=== PATIENT | female | born 1945 | race Caucasian/White ===

== ENCOUNTER 2017-10-02 13:15 | Inpatient (IN) | payer MEDICARE ==
[2017-10-02 15:34] VITALS: BMI 21.0
[2017-10-09] MEDS ORDERED: CEFAZOLIN/Water 2 GM/20 ML SYRINGE ONE (08:56)
[2017-10-09] MEDS ORDERED: Tranexamic Acid 1,000 MG/100 ML BAG ONE ×2 (08:57→12:06)
[2017-10-09] MEDS ORDERED: Fentanyl 100 MCG/2 ML VIAL ONE (09:05)
[2017-10-09] MEDS ORDERED: Midazolam HCl 2 mg/2 ml Vial ONE ×2 (09:05→10:36)
[2017-10-09] MEDS ORDERED: traMADol HCl 50 MG TAB PO PRN ×2 (09:30→10:14)
[2017-10-09] MEDS ORDERED: diphenhydrAMINE 50 MG/ML VIAL IVP PRN (09:30)
[2017-10-09] MEDS ORDERED: diphenhydrAMINE 25 MG CAP PO PRN ×2 (09:30→10:14)
[2017-10-09] MEDS ORDERED: Fentanyl/Bupivacaine 250 ML in Premix Bag 1 BAG EPIDURAL SCH (09:30)
[2017-10-09] MEDS ORDERED: Bupivacaine 0.25% 10 ML VIAL EPIDURAL PRN (09:30)
[2017-10-09] MEDS ORDERED: Zolpidem Tartrate 5 MG TAB PO PRN ×2 (09:30→10:14)
[2017-10-09] MEDS ORDERED: Ondansetron HCl/PF 4 MG/2 ML Vial IVP PRN ×3 (09:30→12:25)
[2017-10-09] MEDS ORDERED: Promethazine HCl 25 MG/ML VIAL IM PRN ×3 (09:30→12:25)
[2017-10-09] MEDS ORDERED: Naloxone HCl 0.4 mg/ml Vial IVP PRN (09:30)
[2017-10-09] MEDS ORDERED: diphenhydrAMINE 50 MG/ML VIAL IM PRN (09:30)
[2017-10-09] MEDS ORDERED: Eucerin (Mineral Oil/Petrolatum,White) 30 gm Jar TOP PRN (09:30)
[2017-10-09] MEDS ORDERED: Naloxone HCl 0.4 mg/ml Vial IV PRN (09:30)
[2017-10-09] MEDS ORDERED: Promethazine HCl 25 MG SUPP PR PRN (09:30)
[2017-10-09] MEDS ORDERED: Fentanyl 100 MCG/2 ML VIAL SLOW IVP PRN ×2 (10:14)
[2017-10-09] MEDS ORDERED: Acetaminophen 325 MG TAB PO PRN (10:14)
[2017-10-09] MEDS ORDERED: Tranexamic Acid 1,000 MG in Sodium Chloride 0.9% 100 ML IVPB SCH (10:15)
[2017-10-09] MEDS ORDERED: Sodium Chloride 0.9% 1,000 ML IV SCH (10:15)
[2017-10-09] MEDS ORDERED: Bupivacaine/Epinephrine 0.25% 30 ML VIAL ONE (11:18)
[2017-10-09] MEDS ORDERED: Promethazine HCl 25 MG/ML VIAL SLOW IVP PRN (12:25)
[2017-10-09] MEDS ORDERED: Fentanyl/Bupivacaine 250 ML EPIDURAL ONE (12:43)
--- NOTE | 2017-10-09 13:01 | OP ---
PREOPERATIVE DIAGNOSIS: Degenerative joint disease, left hip. POSTOPERATIVE DIAGNOSIS: Degenerative joint disease, left hip. SURGEON: Cam Davila M.D. GANG BOSS: Trev Parker PA-C. BLOOD LOSS: 200 mL. SPECIMEN: None. DRAINS: None. COMPLICATIONS: None. PROCEDURE IN DETAIL: After informed consent was obtained in the preoperative holding area, the patie nt was taken to the operative suite where general anesthesia was induced. The patient was then posit ioned in the lateral decubitus position. The hip was then prepped and draped in usual sterile fashio n. The patient received preoperative antibiotics. Prior to incision, time-out was called and all me mbers of the surgical team agreed upon site, surgeon, and patient. After this, a longitudinal incisi on was made directly over the trochanter, noted by palpation extending 2 fingerbreadths above and bel ow the trochanter. The deeper subcutaneous layer was undermined with Bovie electrocautery. The ilio tibial band was encountered and incised sharply and the plane below this was developed bluntly. [facility] to hold this opened. The lateral aspect of the trochanter and the abduct or muscles were encountered and then reflected anteriorly off the trochanter using Bovie electrocaute ry. Once this was completed, the anterior capsule was then encountered and identified and copious ca psulotomy was carried out, exposing the femoral neck and head. Dislocation maneuver was then performe d and an in situ provisional neck cut was then made using the oscillating saw. Attention was then tu rned to acetabular preparation and sequential reaming was carried out up to the appropriate diameter and a trial was then malleted into place with good firm resistance and no pullout. The permanent remy tabular shell was then malleted squarely into place, as was the appropriate liner. Once completed, t he wound was copiously irrigated and attention was then turned to femoral preparation. Flexion and ex ternal rotation was performed of the exposed thigh and femoral elevators were then placed at the prox imal aspect of the wound. Canal finder was used to establish the length of the canal and sequential reaming was carried out, followed by broaching. Once the appropriate stability was established with the trial broaches with both flexion, extension and rotational stability, we did trial with neutral a nd 2 mm offset incremental necks. Once the appropriate size was decided upon, with good stability no tiny with flexion, extension, internal and external rotation and shuck being negative, we removed the femoral trial broach and malletted into place the permanent prosthesis with good firm fit, which was also stable to rotation. Again, the hip felt very stable to flexion, extension, internal and externa l rotation. Leg lengths appeared near anatomic clinically and we were quite happy with prosthesis pl acement. Copious irrigation was then carried out through the entirety of the wound. Primary closure of the abductors was accomplished with interrupted #2 Vicryl [id number] stitches and the IT ban d was then closed with interrupted #2 Vicryl, oversewn with a #2 running barbed Quill stitch. Subcut aneous fascia was closed with running barbed Quill stitch and a subcuticular Monocryl barbed Quill st itch was used for skin closure and augmented with skin cement. A sterile dressing was applied. The p rocedure was terminated without any complication. All counts were correct. The patient was awakened in the operative suite and taken to the recovery room in stable condition.
--- NOTE | 2017-10-09 13:32 | RAD ---
TWO VIEWS LEFT HIP: Date: 10-09-17 Comparison: None. History: Evaluate left hip following arthroplasty. FINDINGS: There is post-operative gas lateral to the proximal left femoral shaft. There is a left total hip art hroplasty with no evidence for hardware failure. No acute fracture or dislocation. IMPRESSION: Status post left total hip arthroplasty. POS: DEONTE
[2017-10-09] MEDS ORDERED: Ondansetron HCl/PF 4 MG/2 ML Vial ONE (14:04)
[2017-10-09] MEDS: Acetaminophen 325 MG TAB PO SCH ×2 (15:41→17:00)
[2017-10-09] MEDS: Ketorolac Tromethamine 30 MG/ML VIAL IVP SCH ×2 (15:42→17:55)
[2017-10-09] MEDS ORDERED: Propofol 200 MG/20 ML VIAL ONE (16:57)
[2017-10-09] MEDS ORDERED: Lidocaine 1% PF 5 ML VIAL ONE (16:57)
[2017-10-09] MEDS: CEFAZOLIN/Water 2 GM/20 ML SYRINGE SLOW IVP SCH (17:42)
[2017-10-09] MEDS: traMADol HCl 50 MG TAB PO PRN (17:55)
[2017-10-09 19:52] LABS: Anion Gap 9 mmol/L (10-20); BUN (Urea Nitrogen) 11 mg/dL (9.8-20.1); Calc. Creatinine Clearance 74 mL/min (70-130); Calcium 8.8 mg/dL (7.8-10.44); Carbon Dioxide 27 mmol/L (23-31); Chloride 105 mmol/L (98-107); Estimated GFR-MDRD Greater than 90
[2017-10-09] MEDS: busPIRone HCl 10 MG TAB PO SCH (20:33)
[2017-10-09] MEDS: traZODone HCl 50 MG TAB PO SCH (20:33)
[2017-10-09] MEDS: Atorvastatin Calcium 20 MG TAB PO SCH (20:33)
[2017-10-09] MEDS: Aspirin 325 MG TAB PO SCH (20:33)
[2017-10-09] MEDS: Nicotine 21 MG PATCH TD SCH (20:34)
[2017-10-09] MEDS ORDERED: traMADol HCl 50 MG TAB PO SCH (21:00)
[2017-10-09] MEDS: Sodium Chloride 0.9% 1,000 ML IV SCH (23:08)
[2017-10-10] MEDS: Acetaminophen 325 MG TAB PO SCH ×5 (00:40→23:57)
[2017-10-10] MEDS: Ketorolac Tromethamine 30 MG/ML VIAL IVP SCH ×5 (00:40→23:57)
[2017-10-10] MEDS: CEFAZOLIN/Water 2 GM/20 ML SYRINGE SLOW IVP SCH (00:43)
[2017-10-10] MEDS: Sodium Chloride 0.9% 1,000 ML IV SCH ×2 (00:47→10:41)
--- NOTE | 2017-10-10 01:27 | CON ---
DATE OF CONSULTATION: 10/09/2017 CONSULTING PHYSICIAN: Cam Davila M.D. REASON FOR ADMISSION: Left hip pain status post left hip arthroplasty. REASON FOR CONSULT: Medical management. HISTORY OF PRESENT ILLNESS: This is a 72-year-old pleasant lady, who was apparently in a usual state of health, came into the hospital because of chronic left hip pain. She had her left hip arthroplas ty and postsurgically, has been admitted to the hospital for observation. She is doing much better r ight now. She is eating and she denies any chest pain, shortness of breath, fever, or chills. She s ays that she is a little anxious and she was requesting a nicotine patch, also says that she has some itching sensation in the perivaginal area. PAST MEDICAL HISTORY: Significant for hypertension, hyperlipidemia, and depression. SOCIAL HISTORY: Significant for tobacco use, socially wine use, and no recreational drug use. ALLERGIES: HYDROCODONE, LATEX, XANAX. 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 PAST SURGICAL HISTORY: Significant for hysterectomy, breast cancer surgery, laminectomy L3-L4, gallb ladder surgery, appendectomy, and bladder reconstruction. MEDICATIONS: Include trazodone, Zoloft, BuSpar, Lipitor, and lisinopril. REVIEW OF SYSTEMS: Significant for left hip discomfort otherwise no fever, no chills, no headache, n o appetite, no hearing loss, and no latencies. No cough, no chest pain, diarrhea, dysuria, or polyur ia. No memory or mood changes. No neck pain. Complains of some vaginal itching sensation in the va [place]. PHYSICAL EXAMINATION: VITAL SIGNS: Blood pressure is 121/68, afebrile, pulse is 87, breathing comfortably on room air. GENERAL: Patient is lying in bed in mild discomfort because of the left hip surgery. HEENT: Atraumatic, normocephalic. Pupils equal, round, react to light. Extraocular movements intac t. Mucous membranes moist. NECK: Supple. No JVD. CHEST: Breath sounds. There are no rales or rhonchi. HEART: S1, S2. No murmurs or gallops. ABDOMEN: Soft. EXTREMITIES: Left hip in dressing, otherwise no cyanosis, clubbing, or edema. Distal pulses present . NEUROLOGIC: Alert, awake, oriented. No cranial deficits. No sensorimotor deficits. LABORATORY DATA: WBC count is 6.6, hemoglobin is 14, INR is 1. Potassium is 4.1, creatinine is 0.7. UA done on the showed some leukocyte esterase and some wbc's. ASSESSMENT AND PLAN: 1. Degenerative joint disease of the left hip status post arthroplasty. We will do pain management, physical therapy, and we will follow primary's plan. 2. Possible urinary tract infection. We will repeat UA. The patient does not complain of any sympt oms or does not have any fever or white count. We will repeat UA and treat if needed. 3. Tobacco use. We will give the patient nicotine patch. 4. Hyperlipidemia. Continue home medications. 5. Hypertension. Continue home medications. 6. Depression. We will continue home medications. 7. Sequential compression devices for deep venous thrombosis prophylaxis. Thanks Dr. Davila for letting me participate in this patient's care. I will follow with you and make recommendations as clinical course evolves.
[2017-10-10 01:38] LABS: Bilirubin Negative (Negative); Blood, Urine Negative (Negative); Glucose, Urine (Dipstick) Negative (Negative); Ketone, Urine Negative (Negative); Nitrite Negative (Negative); Protein, Urine (Dipstick) Negative (Neg-Trace); Urobilinogen 0.2 mg/dL (0.2-1.0)
[2017-10-10 01:41] LABS: Bacteria/HPF None Seen HPF (None Seen); Hyaline Casts/LPF 0-3 HYALINE CAST LPF (0-3 Hyaline); RBC/HPF 0-3 HPF (0-3); Squamous Epithelial None Seen HPF (0-3); WBC/HPF None Seen HPF (0-3)
[2017-10-10] MEDS: traMADol HCl 50 MG TAB PO PRN ×2 (06:25→17:23)
[2017-10-10 06:28] LABS: #Eosinphils 0.1 thou/uL (0.0-0.7); #Lymphocytes 1.1 thou/uL (1.20-3.40); #Monocytes 0.6 thou/uL (0.11-0.59); #Neutrophils 4.6 thou/uL (1.40-6.50); %Basophils 0.3 % (0.0-1.0); %Eosinophils 0.9 % (0.0-10.0); %Lymphocytes 17.8 % (21.0-51.0); Mean Platelet Volume 6.8 fL (7.4-10.4); Red Blood Cell (RBC) Count 3.47 mill/uL (4.20-5.40); White Blood Cell (WBC) Count 6.4 thou/uL (4.8-10.8)
[2017-10-10] MEDS ORDERED: Fentanyl 100 MCG/2 ML VIAL SLOW IVP PRN (08:46)
--- NOTE | 2017-10-10 10:04 | PRG ---
DATE OF SERVICE: 10/10/2017 SUBJECTIVE: Ms. Beavers is postoperative day #1 from a press fit left total hip arthroplasty. She is doing relatively well. She has some discomfort as expected, but overall pain is pretty well controll ed. OBJECTIVE: VITAL SIGNS: Temperature 98.2, pulse 80, respiratory rate 16, blood pressure is 94/54, stable. GENERAL: She is alert and oriented to person, place, time, and situation, regular rate and rhythm. ABDOMEN: Soft. EXTREMITIES: No clubbing, cyanosis or edema. Neurovascularly intact. There is no shortening or ext ernal rotation of the extremities. LABORATORY DATA: Hemoglobin and hematocrit are 12.8 and 37.0. ASSESSMENT: A 72-year-old white female postop day #1, left total hip arthroplasty, doing well. PLAN: Continue current management and probable transfer to either rehabilitation or retirement, postop day #3.
[2017-10-10] MEDS: Ferrous Gluconate 324 MG TAB PO SCH ×2 (10:22→17:23)
[2017-10-10] MEDS: Bupivacaine 10 ML in Sodium Chloride 0.9% 90 ML EPIDURAL SCH ×2 (10:35→23:56)
[2017-10-10] MEDS: Aspirin 325 MG TAB PO SCH ×2 (11:04→20:56)
[2017-10-10] MEDS: busPIRone HCl 10 MG TAB PO SCH ×2 (11:04→20:55)
[2017-10-10] MEDS: Lisinopril 10 MG TAB PO SCH (11:04)
[2017-10-10] MEDS: Senokot S 8.6-50 MG TAB PO SCH ×2 (11:04→20:56)
[2017-10-10] MEDS: Multivitamin W/ Minerals 1 TAB PO SCH (11:04)
--- NOTE | 2017-10-10 15:31 | PDOC.PN ---
- Subjective Encounter Start Date: 10/10/17 Encounter Start Time: 15:28 Patient seen and examined. No new complaints. No overnight events - Objective MAR Reviewed: Yes Vital Signs & Weight: Vital Signs (12 hours) Temp Pulse Resp BP Pulse Ox 10/10/17 12:07 98.2 F 87 16 111/64 10/10/17 08:32 98.2 F 80 16 94/54 L 95 10/10/17 08:05 98.2 F 80 16 10/10/17 04:47 91 L 10/10/17 04:25 98.0 F 100 16 121/86 91 L Weight Admit Weight 115 lb Weight 115 lb I&O: 10/09/17 10/10/17 10/11/17 06:59 06:59 06:59 Output Total 700 Balance -700 Result Diagrams: 10/10/17 05:58 10/09/17 19:18 Phys Exam - Physical Examination Constitutional: NAD HEENT: PERRLA Neck: no nodes Respiratory: no rales Cardiovascular: no significant murmur Gastrointestinal: non-tender Musculoskeletal: pulses present lt hip in dressing Neurological: moves all 4 limbs Psychiatric: A&O x 3 Dx/Plan (1) H/O total hip arthroplasty Code(s): Z96.649 - PRESENCE OF UNSPECIFIED ARTIFICIAL HIP JOINT Status: Acute (2) Tobacco use Code(s): Z72.0 - TOBACCO USE Status: Acute (3) HTN (hypertension) Code(s): I10 - ESSENTIAL (PRIMARY) HYPERTENSION Status: Acute (4) Hyperlipidemia Code(s): E78.5 - HYPERLIPIDEMIA, UNSPECIFIED Status: Acute - Plan * cont pain mx and physical therapy * case mx to help with placement
[2017-10-10] MEDS: Nicotine 21 MG PATCH TD SCH (20:55)
[2017-10-10] MEDS: Atorvastatin Calcium 20 MG TAB PO SCH (20:56)
[2017-10-10] MEDS: traZODone HCl 50 MG TAB PO SCH (20:56)
[2017-10-11] MEDS: Ketorolac Tromethamine 30 MG/ML VIAL IVP SCH (05:21)
[2017-10-11] MEDS: Acetaminophen 325 MG TAB PO SCH ×2 (05:22→11:41)
[2017-10-11 06:16] LABS: Hematocrit 37.3 % (36.0-47.0); Mean Platelet Volume 7.1 fL (7.4-10.4); Red Blood Cell (RBC) Count 3.51 mill/uL (4.20-5.40); White Blood Cell (WBC) Count 5.9 thou/uL (4.8-10.8)
[2017-10-11 08:05] VITALS: TEMP 98.2
[2017-10-11] MEDS: Ferrous Gluconate 324 MG TAB PO SCH (09:11)
[2017-10-11] MEDS: busPIRone HCl 10 MG TAB PO SCH (09:11)
[2017-10-11] MEDS: Senokot S 8.6-50 MG TAB PO SCH (09:11)
[2017-10-11] MEDS: Lisinopril 10 MG TAB PO SCH (09:11)
[2017-10-11] MEDS: Multivitamin W/ Minerals 1 TAB PO SCH (09:11)
[2017-10-11] MEDS: Aspirin 325 MG TAB PO SCH (09:12)
[2017-10-11] MEDS: traMADol HCl 50 MG TAB PO PRN (10:51)
--- NOTE | 2017-10-11 12:27 | PDOC.PN ---
- Subjective Encounter Start Date: 10/11/17 Encounter Start Time: 12:26 Patient seen and examined. No new complaints. No overnight events - Objective MAR Reviewed: Yes Vital Signs & Weight: Vital Signs (12 hours) Temp Pulse Resp BP BP Pulse Ox 10/11/17 09:11 137/73 10/11/17 07:44 98.2 F 90 16 137/73 92 L 10/11/17 05:28 98.4 F 104 H 17 137/74 92 L 10/11/17 04:21 91 L 10/11/17 00:57 98.0 F 95 16 99/59 L 91 L Weight Admit Weight 115 lb Weight 115 lb I&O: 10/10/17 10/11/17 10/12/17 06:59 06:59 06:59 Intake Total 3655 Output Total 700 2725 Balance -700 930 Result Diagrams: 10/11/17 05:23 10/09/17 19:18 Phys Exam - Physical Examination Constitutional: NAD HEENT: PERRLA Neck: no JVD Respiratory: no wheezing Cardiovascular: no significant murmur Gastrointestinal: soft Musculoskeletal: pulses present Neurological: normal sensation Psychiatric: A&O x 3 Dx/Plan (1) H/O total hip arthroplasty Code(s): Z96.649 - PRESENCE OF UNSPECIFIED ARTIFICIAL HIP JOINT Status: Acute (2) Tobacco use Code(s): Z72.0 - TOBACCO USE Status: Acute (3) HTN (hypertension) Code(s): I10 - ESSENTIAL (PRIMARY) HYPERTENSION Status: Acute (4) Hyperlipidemia Code(s): E78.5 - HYPERLIPIDEMIA, UNSPECIFIED Status: Acute - Plan * cont current care * case mx to help with placement * will sign off
[2017-10-11] MEDS ORDERED: Milk Of Magnesia 30 ML UDCUP PO SCH (14:15)
[2017-10-11 16:09] VITALS: BP 135/78
== END 2017-10-11 14:35 | DRG 470 ==
LOC: SJJU 10-09 07:52 → SURG A 10-09 14:18
PROVIDERS: ADMIT Orthopaedic Surgery; ATTEND Orthopaedic Surgery
PROC: 0SRB02Z Replacement of Left Hip Joint with Metal on Polyethylene Synthetic Substitute, Open Approach (ICD-10-PCS; principal; 2017-10-09)
PROC: 3E0T3BZ Introduction of Anesthetic Agent into Peripheral Nerves and Plexi, Percutaneous Approach (ICD-10-PCS; 2017-10-09)
DX: M16.12 Unilateral primary osteoarthritis, left hip (principal); I10 Essential (primary) hypertension; E78.5 Hyperlipidemia, unspecified; F32.9 Major depressive disorder, single episode, unspecified; Z88.5 Allergy status to narcotic agent; Z88.8 Allergy status to other drugs, medicaments and biological substances; Z91.040 Latex allergy status; Z86.73 Personal history of transient ischemic attack (TIA), and cerebral infarction without residual deficits; Z85.3 Personal history of malignant neoplasm of breast
CPT/HCPCS: 36415; 80048; 81001; 85027; C1776; G8978-GP-CL; G8979-GP-CI; G8987-GO-CL; G8988-GO-CJ; J1200; J1885; J2001; J2250; J2405; J2704; J3010; J3370; J3490; J7050

== ENCOUNTER 2017-10-02 15:15 | Outpatient (CLI) | payer MEDICARE ==
[2017-10-02 16:17] LABS: Bilirubin Negative (Negative); Blood, Urine Small (Negative); Glucose, Urine (Dipstick) Negative (Negative); Ketone, Urine Negative (Negative); Nitrite Negative (Negative); Protein, Urine (Dipstick) Negative (Neg-Trace)
[2017-10-02 16:20] LABS: Hyaline Casts/LPF 0-3 HYALINE CAST LPF (0-3 Hyaline); Squamous Epithelial None Seen HPF (0-3)
[2017-10-02 16:29] LABS: PTT 35.1 SEC (22.9-36.1); Prothrombin Time 13.2 SEC (12.0-14.7)
[2017-10-02 16:34] LABS: Bacteria/HPF Rare-Few HPF (None Seen); Yeast-All Forms None Seen HPF (None Seen)
[2017-10-02 16:38] LABS: Anion Gap 11 mmol/L (10-20); BUN (Urea Nitrogen) 20 mg/dL (9.8-20.1); Calc. Creatinine Clearance 0 mL/min (70-130); Calcium 9.8 mg/dL (7.8-10.44); Carbon Dioxide 28 mmol/L (23-31); Chloride 103 mmol/L (98-107); Estimated GFR-MDRD 79
[2017-10-02 16:50] LABS: #Eosinphils 0.1 thou/uL (0.0-0.7); #Lymphocytes 1.7 thou/uL (1.20-3.40); #Monocytes 0.5 thou/uL (0.11-0.59); #Neutrophils 4.2 thou/uL (1.40-6.50); %Basophils 0.7 % (0.0-1.0); %Eosinophils 2.2 % (0.0-10.0); %Lymphocytes 25.2 % (21.0-51.0); %Monocytes 7.6 % (0.0-10.0); Hematocrit 41.4 % (36.0-47.0); Macrocytosis SLIGHT = 6-15 cells (100X) (0-5/hpf); Mean Platelet Volume 6.5 fL (7.4-10.4); Red Blood Cell (RBC) Count 3.93 mill/uL (4.20-5.40); White Blood Cell (WBC) Count 6.6 thou/uL (4.8-10.8)
--- NOTE | 2017-10-02 19:54 | RAD ---
TWO VIEW CHEST: 10/02/17 HISTORY: Preoperative evaluation. No comparison studies. Mild volume expansion suggests changes of COPD. There is gas density posterior to the cardiac silhoue tte consistent with a fixed diaphragmatic hernia. No infiltrate or vascular congestion. Heart size is normal. Mild degenerative changes in the thoracic spine. IMPRESSION: 1. Evidence of a fixed diaphragmatic hernia. Suggest confirmation with barium swallow or CT. 2. No acute lung process identified. POS: AMARA
== END 2017-10-02 15:16 | disposition home or self-care (01) ==
LOC: LABBT 15:15
PROVIDERS: ATTEND Orthopaedic Surgery
DX: Z01.818 Encounter for other preprocedural examination (principal); M16.12 Unilateral primary osteoarthritis, left hip; K44.9 Diaphragmatic hernia without obstruction or gangrene
CPT/HCPCS: 71020; 80048; 81001; 85025; 85610; 85730; 86850; 86900; 86901; 87081; 93005; 93010

== ENCOUNTER 2018-08-05 12:01 | Outpatient (CLI) | payer MEDICARE | END 2018-08-05 12:02 | disposition home or self-care (01) | LOC: BICMAMMO 12:01 | PROVIDERS: ATTEND Nurse Practitioner Family | DX: Z12.31 Encounter for screening mammogram for malignant neoplasm of breast (principal); Z85.3 Personal history of malignant neoplasm of breast | CPT/HCPCS: 77063; 77067 ==

== ENCOUNTER 2019-06-09 12:43 | Outpatient (CLI) | payer MEDICARE, OTHER ==
[2019-06-09 16:10] LABS: #Eosinphils 0.2 thou/uL (0.0-0.7); #Lymphocytes 1.7 thou/uL (1.20-3.40); #Monocytes 0.4 thou/uL (0.11-0.59); #Neutrophils 3.3 thou/uL (1.40-6.50); %Basophils 0.3 % (0.0-1.0); %Eosinophils 3.1 % (0.0-10.0); %Lymphocytes 29.9 % (21.0-51.0); %Monocytes 7.6 % (0.0-10.0); %Neutrophils 59.1 % (42.0-75.0); Hemoglobin 13.3 g/dL (12.0-16.0); Mean Corpuscular HGB CONC 32.8 g/dL (32.0-36.0); Mean Corpuscular Hemoglobin 32.4 pg (27.0-31.0); Mean Platelet Volume 7.2 fL (7.4-10.4); Platelet Count 242 thou/uL (130-400); RBC Distribution Width 14.5 % (11.5-14.5); Red Blood Cell (RBC) Count 4.09 mill/uL (4.20-5.40); White Blood Cell (WBC) Count 5.5 thou/uL (4.8-10.8)
== END 2019-06-09 12:44 | disposition home or self-care (01) ==
LOC: LABBT 12:43
PROVIDERS: ATTEND Obstetrics & Gynecology
DX: Z01.812 Encounter for preprocedural laboratory examination (principal); T83.718A Erosion of other implanted mesh to organ or tissue, initial encounter
CPT/HCPCS: 85025; 86850; 86900; 86901

== ENCOUNTER 2019-09-24 15:14 | Outpatient (CLI) | payer MEDICARE, OTHER ==
--- NOTE | 2019-09-24 16:53 | MMO ---
Bilateral MAMMO Bilat Screen [facility]. CLINICAL HISTORY: Patient is 74 years old and is seen for screening. The patient has no family history of breast cancer. The patient has a history of Ultrasound guided core biopsy procedure revealed invasive ductal right breast carcinoma in December,. The patient has a history of right Lumpectomy in December, - malignant. VIEWS: The views performed were: bilateral craniocaudal with tomosynthesis and bilateral mediolateral oblique with tomosynthesis. FILMS COMPARED: The present examination has been compared to prior imaging studies performed at [facility] on 07/16/2015, 07/17/2016, 08/03/2017 and 08/05/2018. This study has been interpreted with the assistance of computer-aided detection. MAMMOGRAM FINDINGS: There are scattered fibroglandular densities. Benign calcifications are noted bilaterally. There are no suspicious masses, suspicious calcifications, or new areas of architectural distortion. IMPRESSION: THERE IS NO MAMMOGRAPHIC EVIDENCE OF MALIGNANCY. A ROUTINE FOLLOW-UP MAMMOGRAM IN 1 YEAR IS RECOMMENDED. THE RESULTS OF THIS EXAM WERE SENT TO THE PATIENT. ACR BI-RADS Category 2 - Benign finding MAMMOGRAPHY NOTE: 1. A negative mammogram report should not delay a biopsy if a dominant of clinically suspicious mass is present. 2. Approximately 10% to 15% of breast cancers are not detected by mammography. 3. Adenosis and dense breasts may obscure an underlying neoplasm. Reported by: RICHARD ROJO MD Electonically Signed: [id number]
== END 2019-09-24 15:15 | disposition home or self-care (01) ==
LOC: BICMAMMO 15:14
PROVIDERS: ATTEND Nurse Practitioner Family
DX: Z12.31 Encounter for screening mammogram for malignant neoplasm of breast (principal); Z85.3 Personal history of malignant neoplasm of breast
CPT/HCPCS: 77063; 77067

== ENCOUNTER 2020-09-27 08:36 | Outpatient (CLI) | payer MEDICARE, OTHER ==
--- NOTE | 2020-09-27 11:15 | RAD ---
BIPHASIC BARIUM ENEMA: Date: 09/27/2020 HISTORY: 75-year-old female with incomplete colonoscopy. History of colonic polyps. FINDINGS: A retrograde air contrast barium enema was performed with thick barium. There is unobstructed retrograde flow of contrast into the cecum with reflux into the terminal ileum. No obstructing mass or stricture identified. There are numerous colonic diverticula. A significant a mount of contrast remains on the post evacuation image. IMPRESSION: Colonic diverticulosis. No evidence of obstructing mass or stricture. POS: AMARA
== END 2020-09-27 08:37 | disposition home or self-care (01) ==
LOC: RAD 08:36
PROVIDERS: ATTEND Internal Medicine Gastroenterology
DX: K56.699 Other intestinal obstruction unspecified as to partial versus complete obstruction (principal); K57.30 Diverticulosis of large intestine without perforation or abscess without bleeding; Z86.010 Personal history of colon polyps
CPT/HCPCS: 74280

== ENCOUNTER → 2020-10-15 | Day surgery (SDC) | payer MEDICARE, OTHER ==
--- NOTE | 2020-10-15 11:03 | RAD ---
EXAM: XR UGI Air Contrast DATE: 10/15/2020 9:45 AM INDICATION: History of paraesophageal hernia COMPARISON: CT the abdomen and pelvis from prior radiology associates dated July 24, 2017 FINDING: Thick barium contrast, thin contrast and effervescent crystals were utilized for a double c ontrast upper GI. There was delayed emptying the stomach limiting evaluation of the proximal small bowel. There is poor distention of majority of the stomach limiting evaluation of the stomach itself. Total dose was 60.02 mGy/ centimeter square. The total fluoroscopic time was 6.3 minutes. There is a large paraesophageal hernia with inversion of the greater curvature and lesser curvature o f the stomach. There was delayed emptying of the stomach into the proximal small bowel limiting evaluation the stomach and proximal small bowel. No gross intraluminal masses evident. The esophagus demonstrated normal contour and motility. There was moderate to severe gastroesophageal reflux throughout the exam. Due to the delayed emptying of the stomach, the 12.5 mm barium tablet was not ad ministered. IMPRESSION:Abnormal upper GI 1. Large paraesophageal hernia with approximately 90% of the stomach being within the posterior media stinum. There is inversion of the greater curvature and lesser curvature the stomach with delayed emptying of the stomach into the proximal small bowel. 2. Moderate to severe gastroesophageal reflux.
== END ==
LOC: RAD 08:57 → ENDO/OP 08:58 → EDSTATUS 11:00
PROVIDERS: ATTEND Specialist
DX: K44.9 Diaphragmatic hernia without obstruction or gangrene (principal); K22.70 Barrett's esophagus without dysplasia; K21.9 Gastro-esophageal reflux disease without esophagitis; K57.30 Diverticulosis of large intestine without perforation or abscess without bleeding; I10 Essential (primary) hypertension; Z79.899 Other long term (current) drug therapy; Z87.891 Personal history of nicotine dependence; Z88.5 Allergy status to narcotic agent; Z88.8 Allergy status to other drugs, medicaments and biological substances; Z91.040 Latex allergy status; Z91.048 Other nonmedicinal substance allergy status
CPT/HCPCS: 74246; 91010

== ENCOUNTER 2020-12-09 13:45 | Observation (INO) | payer MEDICARE, OTHER ==
[2020-12-14] MEDS ORDERED: Ketorolac Tromethamine 30 MG/ML VIAL ONE (09:51)
[2020-12-14] MEDS ORDERED: Acetaminophen 500 MG TAB ONE (09:51)
[2020-12-14] MEDS ORDERED: Rocuronium Bromide 10 MG/ML (10ML VIAL) ONE (11:16)
[2020-12-14] MEDS ORDERED: Lidocaine 1% PF 5 ML VIAL ONE (11:16)
[2020-12-14] MEDS ORDERED: Ondansetron PF 4 MG/2 ML Vial ONE (11:16)
[2020-12-14] MEDS ORDERED: PHENYLEPHRINE-NS 100 MCG/ML 10 ML SYRINGE ONE (11:16)
[2020-12-14] MEDS ORDERED: Glycopyrrolate 0.2 MG/ML 5 ML SYRINGE ONE (11:16)
[2020-12-14] MEDS ORDERED: Dexamethasone 20 MG/5 ML VIAL ONE (11:16)
[2020-12-14] MEDS ORDERED: ePHEDrine 50 MG/ML VIAL ONE (11:16)
[2020-12-14] MEDS ORDERED: diphenhydrAMINE 50 MG/ML VIAL ONE (11:16)
[2020-12-14] MEDS ORDERED: Succinylcholine 200 MG/10 ml SYRINGE FS ONE (11:16)
[2020-12-14] MEDS ORDERED: PROPOFOL 200 MG/20 ML VIAL ONE (11:16)
[2020-12-14] MEDS ORDERED: Scopolamine 1.5 mg/72 hour Patch ONE (12:18)
[2020-12-14] MEDS ORDERED: Midazolam HCl 2 mg/2 ml Vial ONE (12:18)
[2020-12-14] MEDS ORDERED: Bupivacaine 0.25% HCL 30 ML VIAL ONE (13:12)
[2020-12-14] MEDS ORDERED: XYLOCAINE 2%-EPI 1:100,000 20 ML VIAL ONE (13:13)
[2020-12-14] MEDS ORDERED: Fentanyl 250 MCG/5 ML VIAL ONE (13:56)
[2020-12-14] MEDS ORDERED: Promethazine HCl 25 MG/ML VIAL IM PRN ×2 (14:45→17:10)
[2020-12-14] MEDS ORDERED: Meperidine HCl/PF 25 MG/ML VIAL SLOW IVP PRN (14:45)
[2020-12-14] MEDS ORDERED: Ondansetron HCl/PF 4 MG/2 ML Vial IVP PRN (14:45)
[2020-12-14] MEDS ORDERED: Promethazine HCl 25 MG/ML VIAL SLOW IVP PRN (14:45)
[2020-12-14] MEDS ORDERED: Fentanyl 100 MCG/2 ML VIAL ONE ×2 (16:47→18:00)
[2020-12-14] MEDS ORDERED: Calcium Carbonate 500 MG ChewTAB PO PRN (17:10)
[2020-12-14] MEDS ORDERED: hydrALAZINE 20 MG/ML VIAL SLOW IVP PRN (17:10)
[2020-12-14] MEDS ORDERED: Mag-Al 1200 mg/1200 mg/30 ML UDCUP PO PRN (17:10)
[2020-12-14] MEDS ORDERED: Dextrose 5% in Water 1,000 ML IV PRN (17:10)
[2020-12-14] MEDS ORDERED: Morphine 4 MG/ML VIAL SLOW IVP PRN (17:10)
[2020-12-14] MEDS ORDERED: Morphine 2 MG/ML VIAL SLOW IVP PRN (17:10)
[2020-12-14] MEDS ORDERED: Dextrose 50% Abboject 50 ML SYRINGE SLOW IVP PRN (17:10)
[2020-12-14] MEDS ORDERED: Ondansetron PF 4 MG/2 ML Vial IVP PRN (17:10)
[2020-12-14] MEDS ORDERED: Albuterol 200 PUFF (6.7GM INHALER) INH PRN (18:32)
[2020-12-14] MEDS: Ketorolac Tromethamine 30 MG/ML VIAL IVP SCH (18:54)
[2020-12-14] MEDS: D5 1/2 NS w/20 mEq KCL 1,000 ML IV SCH (18:54)
[2020-12-14 20:10] VITALS: BMI 31.6
[2020-12-14] MEDS: Famotidine 20 MG TAB PO SCH (20:40)
[2020-12-14] MEDS ORDERED: traZODone HCl 50 MG TAB PO SCH (21:00)
[2020-12-14] MEDS: Famotidine/PF 20 mg/2ml Vial SLOW IVP SCH (22:46)
[2020-12-15] MEDS: Ketorolac Tromethamine 30 MG/ML VIAL IVP SCH ×2 (00:32→05:09)
[2020-12-15] MEDS: D5 1/2 NS w/20 mEq KCL 1,000 ML IV SCH ×3 (02:53→05:20)
[2020-12-15 06:09] LABS: Band 3 % (5-11); Hemoglobin 12.8 g/dL (12.0-16.0); Lymphocytes 16 % (21-51); MDiff Complete? YES; Macrocytosis SLIGHT = 6-15 cells (100X) (0-5/hpf); Mean Corpuscular HGB CONC 33.5 g/dL (32.0-36.0); Mean Corpuscular Hemoglobin 34.4 pg (27.0-31.0); Mean Platelet Volume 7.6 fL (7.4-10.4); Monocytes 2 % (0-10); Neutrophil 78 % (42-75); Platelet Count 239 thou/uL (130-400); Platelet Morphology Comment Appears Adequate; RBC Distribution Width 13.6 % (11.5-14.5); Reactive Lymphocytes 1 % (0-10); Red Blood Cell (RBC) Count 3.72 mill/uL (4.20-5.40); White Blood Cell (WBC) Count 8.3 thou/uL (4.8-10.8)
[2020-12-15 08:22] VITALS: BP 123/76; TEMP 98
[2020-12-15] MEDS ORDERED: Lisinopril 10 MG TAB PO SCH (09:00)
[2020-12-15] MEDS ORDERED: Polyethylene Glycol 3350 17 GM Packet PO SCH (09:00)
[2020-12-15] MEDS: Famotidine/PF 20 mg/2ml Vial SLOW IVP SCH (09:04)
[2020-12-15] MEDS: Famotidine 20 MG TAB PO SCH (09:04)
[2020-12-15] MEDS ORDERED: traMADol HCl 50 MG TAB PO PRN ×2 (10:10)
--- NOTE | 2020-12-15 18:16 | OP ---
DATE OF PROCEDURE: 12/14/2020 PREOPERATIVE DIAGNOSIS: Large paraesophageal hiatal hernia with the majority of the stomach being present within the mediastinum. POSTOPERATIVE DIAGNOSIS: Large paraesophageal hiatal hernia with the majority of the stomach being present within the mediastinum. PROCEDURE PERFORMED: Laparoscopic Flaco fundoplication with posterior and anterior gastropexy. ANESTHESIA: General endotracheal. INDICATIONS FOR PROCEDURE: The patient is a 75-year-old white female. She presents with a symptomatic very large paraesophageal hiatal hernia. After discussing options with the patient, she has elected to proceed with Flaco fundoplication due to the symptomatic nature of her hernia. DESCRIPTION OF OPERATION: Informed consent was obtained. The patient was taken to the operating room, and general endotracheal anesthesia was obtained with the patient in supine position. She was placed in the split leg position. Abdomen was prepped with ChloraPrep and draped in sterile fashion. Local anesthetic was infiltrated using a mixture of 1% lidocaine with epinephrine and 0.25% Marcaine. A 5 mm supraumbilical incision was created, through which a Veress needle was passed in the peritoneal cavity, and pneumoperitoneum was established using carbon dioxide up to pressure of 15 mmHg. A 5 mm trocar port was passed through the same incision and laparoscopic camera was passed through this port. Under direct vision, an additional 5 mm port was placed in the left lateral abdomen. I then addressed adhesions to the anterior abdominal wall in the right upper abdomen from a prior open cholecystectomy. LigaSure was used to completely clear the anterior abdominal wall. There was complete hemostasis during this. The remaining three ports were then placed using an 11 port in the left epigastrium, a 5 port in the right epigastrium, and a 5 port in the right lateral abdomen inferiorly. Snake retractor was passed through the right lateral port and used to elevate the left lobe of the liver using the Homar arm. The patient had a large paraesophageal hiatal hernia. I was able to grasp the stomach and remove the contents present within the mediastinum. Almost the entire stomach was present up within the mediastinum. When I first reduced the contents, much of the esophagus and upper stomach was still tethered up within the hernia. I began dissection on the right side of the hiatus. I dissected through the pars flaccida and cleared the right doreen. I began dissection of the hernia sac on the right side and carried this up around the anterior aspect of the hiatus. This sac was dissected out of the mediastinum primarily using blunt dissection. The LigaSure cautery was used as necessary during the course of dissection. Attention was then turned to the greater curvature. I cleared the greater curve of the stomach using the LigaSure, maintaining meticulous hemostasis. The upper 3rd of the stomach was cleared in this fashion, including division of the short gastrics. I then cleared the left doreen of the diaphragm. I then dissected the hernia sac on the left side out of the mediastinum as well. In so doing, I was able to mobilize the esophagus for several centimeters up within the mediastinum (probably 5 or 6 cm). I returned to the right side of the GE junction and dissected the retroesophageal plane, through which I placed a [place] drain. I then had Anesthesia place a #50 bougie, which passed uneventfully down into the stomach. This was left for the remainder of the fundoplication. I fully dissected the hernia sac and esophagus from within mediastinum. I then resected the majority of the hernia sac with the LigaSure device. I turned my attention toward the hernia. This was closed with four interrupted sutures of 0 Bralon, placing felt pledgets on each side of the muscular suture. With four sutures, the defect was appropriately closed. I then passed the fundus of the stomach through the retroesophageal window over to the right side. I then created a floppy wrap of the fundus to itself. This was effected with three sutures of 0 Bralon, the superior and inferior of which included bites of the esophagus. The mid suture did not contain a bite of the esophagus. Each of these sutures was a little over a centimeter apart. I then placed two collar sutures of 0 Bralon between the wrap and the hiatus at radians. Finally, I placed a posterior gastropexy of 0 Bralon between the posterior aspect of the wrap and the hiatal closure posteriorly. Finally, since the patient had had so much of her stomach within the mediastinum, I decided to place an anterior gastropexy. I pulled the anterior aspect of the gastric body down snug and sutured the appropriate location of the anterior body of the stomach to the anterior abdominal wall fascia at about the level of the costal margin using 2 interrupted full-thickness sutures of 0 Bralon. This appeared to appropriately pexy the stomach inferiorly without creating undue tension. The fascia at the 11 mm port site was closed with 0 Vicryl suture using a GraNee needle. All ports and instruments were removed under direct vision. Pneumoperitoneum was carefully evacuated. A 0.25% Marcaine with epinephrine was infiltrated in each port site. Skin edges approximated with 4-0 Monocryl subcuticular suture. Dermabond was placed externally. There were no complications. The patient tolerated the procedure well and was taken to recovery room in stable condition. Estimated blood loss was less than 5 mL. Job ID: [id number]
== END 2020-12-15 11:00 | disposition home or self-care (01) ==
LOC: INTOOBSV 12-14 08:52 → SURG A 12-14 08:52 → EDSTATUS 12-14 13:45 → SURG B 12-14 18:40
PROVIDERS: ADMIT Specialist; ATTEND Specialist
PROC: 0DV44ZZ Restriction of Esophagogastric Junction, Percutaneous Endoscopic Approach (ICD-10-PCS; principal; 2020-12-14)
DX: K44.9 Diaphragmatic hernia without obstruction or gangrene (principal); E78.5 Hyperlipidemia, unspecified; M81.0 Age-related osteoporosis without current pathological fracture; M41.9 Scoliosis, unspecified; I10 Essential (primary) hypertension; Z79.899 Other long term (current) drug therapy; Z88.5 Allergy status to narcotic agent; Z91.040 Latex allergy status; Z91.048 Other nonmedicinal substance allergy status; Z88.8 Allergy status to other drugs, medicaments and biological substances
CPT/HCPCS: 36415; 85025; 93005; 93010; 96374; 96375; 96376; G0378; J0690; J1100; J1200; J1885; J2250; J2270; J2405; J2704; J3010; J3480; J3490; S0020

== ENCOUNTER 2021-09-06 10:50 | Outpatient (CLI) | payer MEDICARE, OTHER | END 2021-09-06 10:51 | disposition home or self-care (01) | LOC: RAD-FRANK 10:50 | PROVIDERS: ATTEND Nurse Practitioner Family | DX: R05.9 Cough, unspecified (principal) | CPT/HCPCS: 71046 ==

== ENCOUNTER 2021-10-11 11:02 | Outpatient (CLI) | payer MEDICARE, OTHER | END 2021-10-11 11:03 | disposition home or self-care (01) | LOC: BICMAMMO 11:02 | PROVIDERS: ATTEND Nurse Practitioner Family | DX: Z12.31 Encounter for screening mammogram for malignant neoplasm of breast (principal); Z85.3 Personal history of malignant neoplasm of breast; Z98.890 Other specified postprocedural states | CPT/HCPCS: 77063; 77067 ==

== ENCOUNTER 2021-10-24 08:04 | Outpatient (CLI) | payer MEDICARE, OTHER | END 2021-10-24 08:05 | disposition home or self-care (01) | LOC: BICCT 08:04 → CT 08:05 | PROVIDERS: ATTEND Physician Assistant Medical | DX: K22.70 Barrett's esophagus without dysplasia (principal); R63.4 Abnormal weight loss; K59.00 Constipation, unspecified; K57.30 Diverticulosis of large intestine without perforation or abscess without bleeding; Z90.49 Acquired absence of other specified parts of digestive tract | CPT/HCPCS: 74177; 82565 ==

== ENCOUNTER 2022-02-16 14:44 | Outpatient (CLI) | payer MEDICARE, OTHER | END 2022-02-16 14:45 | disposition home or self-care (01) | LOC: RAD-FRANK 14:44 | PROVIDERS: ATTEND Nurse Practitioner Family | DX: M79.642 Pain in left hand (principal) ==

== ENCOUNTER 2022-07-04 10:29 | Outpatient (CLI) | payer MEDICARE, OTHER | END 2022-07-04 10:30 | disposition home or self-care (01) | LOC: RAD-FRANK 10:29 | PROVIDERS: ATTEND Nurse Practitioner Family | DX: Z87.891 Personal history of nicotine dependence (principal) | CPT/HCPCS: 71046 ==

== ENCOUNTER 2022-10-17 09:35 | Outpatient (CLI) | payer MEDICARE, OTHER | END 2022-10-17 09:36 | disposition home or self-care (01) | LOC: ULT 09:35 | PROVIDERS: ATTEND Nurse Practitioner Family | DX: N39.0 Urinary tract infection, site not specified (principal); N39.43 Post-void dribbling | CPT/HCPCS: 76856 ==

== ENCOUNTER 2023-09-13 12:33 | Outpatient (CLI) | payer MEDICARE, OTHER | END 2023-09-13 12:34 | disposition home or self-care (01) | LOC: BICCT 12:33 | PROVIDERS: ATTEND Physician Assistant Medical | DX: K59.09 Other constipation (principal); R49.8 Other voice and resonance disorders; R63.4 Abnormal weight loss; E04.2 Nontoxic multinodular goiter; K57.30 Diverticulosis of large intestine without perforation or abscess without bleeding; I77.811 Abdominal aortic ectasia; N28.1 Cyst of kidney, acquired; Z90.49 Acquired absence of other specified parts of digestive tract | CPT/HCPCS: 71260; 74177; 82565 ==

== ENCOUNTER 2024-01-24 13:13 | Outpatient (CLI) | payer MEDICARE, OTHER | END 2024-01-24 13:14 | disposition home or self-care (01) | LOC: BICULT 13:13 | PROVIDERS: ATTEND Otolaryngology Plastic Surgery within the Head & Neck | DX: E04.2 Nontoxic multinodular goiter (principal) | CPT/HCPCS: 76536 ==

== ENCOUNTER 2024-09-02 17:01 | Emergency (ER) | payer MEDICARE, OTHER ==
[2024-09-02] MEDS ORDERED: Acetaminophen 325 MG TAB ONE (18:34)
[2024-09-02] MEDS ORDERED: Boostrix 0.5 ML (Tdap) VIAL (>/=7 yrs of age) ONE (18:34)
[2024-09-02] MEDS ORDERED: Ondansetron ODT 4 MG TAB ONE (18:46)
[2024-09-02] MEDS ORDERED: Lidocaine 1% w/Epinephrine 1:100K 20 ML VIAL ONE (20:48)
[2024-09-02] MEDS ORDERED: traMADol HCl 50 MG TAB ONE (20:48)
== END 2024-09-02 22:34 | disposition home or self-care (01) ==
LOC: ERS 17:01
DX: S01.111A Laceration without foreign body of right eyelid and periocular area, initial encounter (principal); S01.81XA Laceration without foreign body of other part of head, initial encounter; S50.311A Abrasion of right elbow, initial encounter; S60.812A Abrasion of left wrist, initial encounter; S80.212A Abrasion, left knee, initial encounter; S80.812A Abrasion, left lower leg, initial encounter; W01.10XA Fall on same level from slipping, tripping and stumbling with subsequent striking against unspecified object, initial encounter
CPT/HCPCS: 70450; 70486; 90715; Q0162; 12011; 90471